=== PATIENT | female | born 1970 | race Caucasian/White ===

== ENCOUNTER 2023-01-19 21:41 | Emergency (ER) | payer SELFPAY ==
[~2023-01-19] VITALS: Ht 160 cm; Wt 66.2 kg
[2023-01-19 21:58] LABS: EOSINOPHILS # (AUTO) 0.1 X10'3 (0-0.9); MEAN PLATELET VOLUME 6.9 FL (7.4-10.4)
[2023-01-19 22:00] LABS: BASOPHILS % (AUTO) 0.2 % (0-1); EOSINOPHILS % (AUTO) 1.2 % (0-6); HEMATOCRIT 39.6 % (35.0-45.0); HEMOGLOBIN 13.8 g/dl (12.0-16.0); LYMPHOCYTES # (AUTO) 3.8 X10'3 (1.1-4.8); LYMPHOCYTES % (AUTO) 40.4 % (21-51); MEAN CORPUSCULAR HEMOGLOBIN 32.2 PG (27.0-31.0); MEAN CORPUSCULAR HGB CONC 34.8 g/dL (33.0-36.5); MEAN CORPUSCULAR VOLUME 92.4 FL (78-98); MONOCYTES # (AUTO) 0.9 X10'3 (0-0.9); MONOCYTES % (AUTO) 9.7 % (2-12); NEUTROPHILS # (AUTO) 4.5 X10'3 (1.8-7.7); NEUTROPHILS % (AUTO) 48.5 % (42-75); PLATELET COUNT 278 X10'3 (140-440); RED BLOOD COUNT 4.29 X10'6 (4.20-5.60); RED CELL DISTRIBUTION WIDTH 13.1 % (11.5-14.5); WHITE BLOOD COUNT 9.4 X10'3 (4.5-11.0)
[2023-01-19 22:10] LABS: ALANINE AMINOTRANSFERASE 26 U/L (12-78); ALBUMIN/GLOBULIN RATIO 1.1 (1.1-1.5); ALKALINE PHOSPHATASE 113 IU/L (46-116); ANION GAP 9 (8-16); ASPARTATE AMINO TRANSFERASE 23 U/L (10-37); BILIRUBIN,TOTAL 0.3 MG/DL (0.1-1.0); BLOOD UREA NITROGEN 12 MG/DL (7-18); BUN/CREATININE RATIO 13.6 (10.0-20.0); CALCIUM 9.6 MG/DL (8.5-10.1); CHLORIDE 105 MMOL/L (99-107); CREATININE 0.88 MG/DL (0.40-0.90); GLUCOSE 71 MG/DL (70-104); POTASSIUM 3.1 MMOL/L (3.5-5.1); SODIUM 143 MMOL/L (135-145); TOTAL CARBON DIOXIDE 29.3 MMOL/L (24-32); TOTAL PROTEIN 7.6 G/DL (6.4-8.2); eGFR 67 ML/MIN
--- NOTE | 2023-01-20 00:05 | NUR ---
ANA ROSA robert advised this conventional mortgage underwriter that this patient left and would be coming back in the am.
[2023-01-20 00:06] VITALS: BP 134/83; PULSE 81; RESP 12; TEMP 99.2; O2SAT 97
[2023-01-20] MEDS ORDERED: BECL10.6 PO (14:37)
[2023-01-20] MEDS ORDERED: CETI-90 PO (14:37)
[2023-01-20] MEDS ORDERED: SPIR25TA5 PO (14:37)
[2023-01-20] MEDS ORDERED: METO-395 PO (14:37)
[2023-01-20] MEDS ORDERED: MELA5TAB12 PO (14:37)
[2023-01-20] MEDS ORDERED: FURO20TA4 PO (14:37)
[2023-01-20] MEDS ORDERED: SACU1TAB PO (14:37)
[2023-01-20] MEDS ORDERED: IPRA4AER INH (14:37)
[2023-01-20] MEDS ORDERED: EMPA10TA PO (14:37)
== END 2023-01-20 00:10 | disposition left against medical advice (07) ==
LOC: ER 21:44
DX: Z00.8 Encounter for other general examination (principal); Z53.21 Procedure and treatment not carried out due to patient leaving prior to being seen by health care provider
CPT/HCPCS: 36415; 80053; 83880; 84484; 85025; 93005; 99281

== ENCOUNTER 2023-01-20 10:44 | Inpatient (IN) | payer OTHER ==
[~2023-01-20] VITALS: Ht 160 cm; Wt 57.0 kg
[2023-01-20] VITALS (18 sets, daily range): BP systolic 91–155; BP diastolic 43–100; PULSE 58–108; RESP 12–16; TEMP 97.5–98.2; O2SAT 94–99
[2023-01-20] MEDS ORDERED: HYDROcodone/acetaminophen 5mg/325mg tablet PO PRN (11:20)
[2023-01-20] MEDS ORDERED: mag hydrox/Alum hydrox/simeth 30ml oral suspension PO PRN (11:20)
[2023-01-20] MEDS ORDERED: magnesium hydroxide 30ml (MOM) UD suspension PO PRN (11:20)
[2023-01-20] MEDS ORDERED: acetaminophen 325mg tablet PO PRN ×2 (11:20)
[2023-01-20] MEDS ORDERED: diphenhydrAMINE 25mg capsule PO PRN (11:20)
[2023-01-20] MEDS: normal saline 1000ml 1,000 ML IV SCH ×2 (11:20→21:20)
[2023-01-20] MEDS: morphine 2 MG/ML inj. syringe IV PRN (12:39)
[2023-01-20 12:57] LABS: BASOPHILS % (AUTO) 0.1 % (0-1); EOSINOPHILS # (AUTO) 0.1 X10'3 (0-0.9); HEMATOCRIT 38.5 % (35.0-45.0); LYMPHOCYTES # (AUTO) 2.7 X10'3 (1.1-4.8); LYMPHOCYTES % (AUTO) 32.2 % (21-51); MEAN CORPUSCULAR HEMOGLOBIN 31.3 PG (27.0-31.0); MEAN CORPUSCULAR HGB CONC 33.8 g/dL (33.0-36.5); MEAN CORPUSCULAR VOLUME 92.5 FL (78-98); MEAN PLATELET VOLUME 7.3 FL (7.4-10.4); MONOCYTES # (AUTO) 0.7 X10'3 (0-0.9); MONOCYTES % (AUTO) 9.1 % (2-12); NEUTROPHILS # (AUTO) 4.8 X10'3 (1.8-7.7); NEUTROPHILS % (AUTO) 57.6 % (42-75); PLATELET COUNT 263 X10'3 (140-440); RED BLOOD COUNT 4.16 X10'6 (4.20-5.60); RED CELL DISTRIBUTION WIDTH 13.3 % (11.5-14.5); WHITE BLOOD COUNT 8.2 X10'3 (4.5-11.0)
[2023-01-20 13:13] LABS: ALANINE AMINOTRANSFERASE 22 U/L (12-78); ALBUMIN 3.7 G/DL (3.4-5.0); ALBUMIN/GLOBULIN RATIO 1.1 (1.1-1.5); ALKALINE PHOSPHATASE 112 IU/L (46-116); ANION GAP 10 (8-16); ASPARTATE AMINO TRANSFERASE 25 U/L (10-37); BILIRUBIN,TOTAL 0.3 MG/DL (0.1-1.0); BLOOD UREA NITROGEN 17 MG/DL (7-18); BUN/CREATININE RATIO 18.5 (10.0-20.0); CALCIUM 9.3 MG/DL (8.5-10.1); CHLORIDE 108 MMOL/L (99-107); CREATININE 0.92 MG/DL (0.40-0.90); GLUCOSE 108 MG/DL (70-104); POTASSIUM 3.5 MMOL/L (3.5-5.1); SODIUM 143 MMOL/L (135-145); TOTAL CARBON DIOXIDE 24.8 MMOL/L (24-32); TOTAL PROTEIN 7.1 G/DL (6.4-8.2); eGFR 64 ML/MIN
[2023-01-20] MEDS ORDERED: SPIR25TA5 PO (14:37)
[2023-01-20] MEDS ORDERED: BECL10.6 PO (14:37)
[2023-01-20] MEDS ORDERED: MELA5TAB12 PO (14:37)
[2023-01-20] MEDS ORDERED: EMPA10TA PO (14:37)
[2023-01-20] MEDS ORDERED: SACU1TAB PO (14:37)
[2023-01-20] MEDS ORDERED: IPRA4AER INH (14:37)
[2023-01-20] MEDS ORDERED: METO-395 PO (14:37)
[2023-01-20] MEDS ORDERED: FURO20TA4 PO (14:37)
[2023-01-20] MEDS ORDERED: CETI-90 PO (14:37)
[2023-01-20] MEDS ORDERED: BECLOMETHASONE DIPROPIONATE PO PRN (15:55)
[2023-01-20] MEDS ORDERED: ipratropium/albuterol 3ml nebule NEB PRN (15:55)
[2023-01-20] MEDS ORDERED: BUPIVAcaine/PF 2.5mg/ml (0.25%) 10ml vial ONE (16:43)
[2023-01-20] MEDS ORDERED: LIDOcaine 1% 30ml preserv. free vial ONE (16:43)
--- NOTE | 2023-01-20 16:53 | NUR ---
taken down for surgical removal of AICD at this time.
[2023-01-20] MEDS ORDERED: sevoflurane 250ml liquid IH ONE (17:05)
[2023-01-20] MEDS ORDERED: fentaNYL/PF 50MCG/1 ML 2ML syringe ONE ×2 (17:17→18:21)
[2023-01-20] MEDS ORDERED: midazolam 1 mg/ML 2ml injection ONE (17:36)
[2023-01-20] MEDS ORDERED: propofol inj 20 ML IV ONE (17:37)
[2023-01-20] MEDS ORDERED: LIDOcaine 1%/PF 5ML 10 MG/ML VIAL ONE ×2 (17:37)
[2023-01-20] MEDS ORDERED: 0.9 % SODIUM CHLORIDE 10 ML VIAL ONE (17:37)
[2023-01-20] MEDS ORDERED: phenylephrine 10mg/ml inj. -priapism dosing ONE (17:37)
[2023-01-20] MEDS ORDERED: dexamethasone sod phosphate 4mg/ml inj. ONE (17:37)
[2023-01-20] MEDS ORDERED: ondansetron/PF 4mg/2ml inj ONE (17:37)
[2023-01-20] MEDS ORDERED: vancomycin 1,000mg inj ONE (17:48)
--- NOTE | 2023-01-20 18:22 | NUR ---
Problems reprioritized. Patient report given, questions answered & plan of care reviewed with XI Oneal. All questions answered, XI Chicas.
--- NOTE | 2023-01-20 18:31 | NUR ---
Patient in room PCU 3012. I have received report from ROBERT/ FLOR LAYNE and had the opportunity to ask questions and assume patient care.
[2023-01-20] MEDS ORDERED: morphine 10mg/ml inj. ONE (18:53)
--- NOTE | 2023-01-20 18:56 | NUR ---
Received from OR via [facility] BED TO RR 6 , accompanied by Anesthesiologist DR DUNBAR and report given by Anesthesiolgist. PT PRESENTS WITH PIV 18G LEFT AC, DRESSING ON UPPER LEFT CHEST CDI, SPO2 99% 10L MASK, LR RUNNING AT 100MLS/HR, PT PAIN 0/10, VSS. Addendum: 01/20/23 at 1910 by Kelsey Gaitan RN, RN Amended: Links added.
[2023-01-20] MEDS ORDERED: labetalol 20mg/4ml (5mg/ml) syringe IV PRN (19:00)
[2023-01-20] MEDS ORDERED: morphine 2 MG/ML inj. syringe IV PRN (19:00)
[2023-01-20] MEDS ORDERED: morphine 4 MG/ML inj SYRINge IV PRN (19:00)
[2023-01-20] MEDS ORDERED: ondansetron/PF 4mg/2ml inj IV PRN (19:00)
[2023-01-20] MEDS ORDERED: acetaminophen 1,000mg/100ml IV 100 ML IV PRN (19:00)
[2023-01-20] MEDS ORDERED: proCHLORperazine 10 MG/2 ml inj IV PRN (19:00)
[2023-01-20] MEDS ORDERED: ringers solution, lacted 1,000 ML IV SCH (19:00)
[2023-01-20] MEDS ORDERED: hydrALAZINE 20mg/ml inj. IV PRN (19:00)
[2023-01-20] MEDS ORDERED: HYDROmorphone/PF 0.2 MG/ML SYRINGE IV PRN ×2 (19:00)
[2023-01-20] MEDS ORDERED: meperidine/PF 25mg/ml syringe ONE (19:04)
--- NOTE | 2023-01-20 19:35 | NUR ---
RECEIVED REPORT FROM ROBERTO LAYNE IN PACU. WILL CONTINUE TO MONITOR.
--- NOTE | 2023-01-20 19:46 | NUR ---
Report called to receiving nurse ADAN LAYNE. Transferred via [facility] BED TO ROOM [facility]. BED IN LOW LOCKED PSOTION WITH CHANTAL LIGHT IN REACH, PT HOOKED UP TO BEDSIDE MONITOR. Belongings WERE LEFT IN PT ROOM. Special Issues communicated to receiving nurse. Addendum: 01/20/23 at 1950 by Kelsey Gaitan RN, RN Amended: Links added.
[2023-01-20] MEDS: vancomycin/NS 1 GM ADD-VANTAGE 250 ML IV SCH (20:02)
[2023-01-20] MEDS: Melatonin 3mg tablet PO SCH (20:03)
[2023-01-20] MEDS: docusate sod 100mg capsule PO SCH (20:03)
[2023-01-20] MEDS: furosemide 20MG tablet PO SCH (20:03)
[2023-01-20] MEDS: metoprolol succinate 25mg (24-HOUR) SR. Tablet PO SCH (20:03)
[2023-01-20] MEDS: sacubitril/valsartan 24mg-26mg tablet PO SCH (20:10)
[2023-01-20] MEDS ORDERED: temazepam 15mg capsule PO PRN (21:00)
[2023-01-21] VITALS (11 sets, daily range): BP systolic 91–116; BP diastolic 47–71; PULSE 59–77; RESP 11–22; TEMP 97.4–98.7; O2SAT 95–98
[2023-01-21] MEDS: vancomycin/NS 1 GM ADD-VANTAGE 250 ML IV SCH ×2 (03:35→16:00)
[2023-01-21] MEDS: normal saline 1000ml 1,000 ML IV SCH ×2 (03:36→17:34)
--- NOTE | 2023-01-21 06:20 | NUR ---
Problems reprioritized. Patient report given, questions answered & plan of care reviewed with ROBERT/ FLOR LAYNE.
--- NOTE | 2023-01-21 06:43 | NUR ---
Patient in room PCU 3012. I have received report from Kimmy LAYNE and had the opportunity to ask questions and assume patient care. Aviva LAYNE, Dae LAYNE
[2023-01-21 06:48] LABS: BASOPHILS % (AUTO) 0.1 % (0-1); EOSINOPHILS % (AUTO) 0 % (0-6); HEMATOCRIT 36.3 % (35.0-45.0); HEMOGLOBIN 12.2 g/dl (12.0-16.0); LYMPHOCYTES % (AUTO) 8.3 % (21-51); MEAN CORPUSCULAR HGB CONC 33.6 g/dL (33.0-36.5); MEAN CORPUSCULAR VOLUME 92.2 FL (78-98); MEAN PLATELET VOLUME 7.3 FL (7.4-10.4); MONOCYTES # (AUTO) 0.3 X10'3 (0-0.9); MONOCYTES % (AUTO) 2.2 % (2-12); NEUTROPHILS # (AUTO) 11.1 X10'3 (1.8-7.7); NEUTROPHILS % (AUTO) 89.4 % (42-75); PLATELET COUNT 241 X10'3 (140-440); RED BLOOD COUNT 3.93 X10'6 (4.20-5.60); RED CELL DISTRIBUTION WIDTH 13.1 % (11.5-14.5); WHITE BLOOD COUNT 12.4 X10'3 (4.5-11.0)
[2023-01-21 06:58] LABS: APTT 27 SECONDS (22-32)
[2023-01-21 07:02] LABS: ALANINE AMINOTRANSFERASE 18 U/L (12-78); ALBUMIN 3.2 G/DL (3.4-5.0); ALBUMIN/GLOBULIN RATIO 1.1 (1.1-1.5); ALKALINE PHOSPHATASE 101 IU/L (46-116); ANION GAP 7 (8-16); ASPARTATE AMINO TRANSFERASE 24 U/L (10-37); BILIRUBIN,TOTAL 0.4 MG/DL (0.1-1.0); BLOOD UREA NITROGEN 15 MG/DL (7-18); BUN/CREATININE RATIO 17.6 (10.0-20.0); CALCIUM 8.5 MG/DL (8.5-10.1); CHLORIDE 108 MMOL/L (99-107); CREATININE 0.85 MG/DL (0.40-0.90); GLUCOSE 131 MG/DL (70-104); POTASSIUM 4.4 MMOL/L (3.5-5.1); SODIUM 139 MMOL/L (135-145); TOTAL CARBON DIOXIDE 24.4 MMOL/L (24-32); TOTAL PROTEIN 6.2 G/DL (6.4-8.2); eGFR 70 ML/MIN
[2023-01-21] MEDS: levoFLOXACIN-Levaquin 750MG/D5 150 ML IV SCH (08:18)
[2023-01-21] MEDS: sacubitril/valsartan 24mg-26mg tablet PO SCH ×2 (08:26→20:36)
[2023-01-21] MEDS: cetirizine 10mg tablet PO SCH (08:26)
[2023-01-21] MEDS: docusate sod 100mg capsule PO SCH ×2 (08:26→20:36)
[2023-01-21] MEDS: EMPAGLIFLOZIN 10 MG TABLET PO SCH (08:26)
[2023-01-21] MEDS: furosemide 20MG tablet PO SCH ×2 (08:26→20:36)
[2023-01-21] MEDS: spironolactone 25 MG tablet PO SCH (08:27)
[2023-01-21] MEDS: metoprolol succinate 25mg (24-HOUR) SR. Tablet PO SCH (08:27)
--- NOTE | 2023-01-21 10:15 | NUR ---
Page Sent To Evi Paul NP [id number] [facility] - Repeat Echo needed for evaluation of life vest, Thank you [phone] Aviva LAYNE
[2023-01-21] MEDS: morphine 2 MG/ML inj. syringe IV PRN ×2 (11:11→23:37)
[2023-01-21] MEDS: nicotine 21mg patch - 24 hr TD SCH (14:00)
--- NOTE | 2023-01-21 14:11 | NUR ---
Order entered for daily dressing change per Aviva HARRIS RN
[2023-01-21] MEDS: Dakins solution (1/4 strength) 473ml solution TP SCH (15:09)
[2023-01-21] MEDS ORDERED: morphine 2 MG/ML inj. syringe IV ONE (15:45)
[2023-01-21] MEDS: Melatonin 3mg tablet PO SCH (20:36)
[2023-01-21] MEDS: HYDROcodone/acetaminophen 10/325mg tab PO PRN (20:38)
[2023-01-21] MEDS: ondansetron/PF 4mg/2ml inj IV PRN (21:10)
[2023-01-22] VITALS (7 sets, daily range): BP systolic 99–118; BP diastolic 55–80; PULSE 62–80; RESP 15–20; TEMP 97.5–98.6; O2SAT 95–99
[2023-01-22] MEDS ORDERED: VANCOMYCIN LEVEL IV ONE (03:30)
[2023-01-22] MEDS: vancomycin/NS 1 GM ADD-VANTAGE 250 ML IV SCH ×2 (04:19→15:35)
[2023-01-22 05:11] LABS: ALANINE AMINOTRANSFERASE 20 U/L (12-78); ALBUMIN 3.6 G/DL (3.4-5.0); ALKALINE PHOSPHATASE 100 IU/L (46-116); ANION GAP 15 (8-16); ASPARTATE AMINO TRANSFERASE 19 U/L (10-37); BILIRUBIN,TOTAL 0.4 MG/DL (0.1-1.0); BLOOD UREA NITROGEN 15 MG/DL (7-18); BUN/CREATININE RATIO 17.4 (10.0-20.0); CALCIUM 9.1 MG/DL (8.5-10.1); CHLORIDE 105 MMOL/L (99-107); CREATININE 0.86 MG/DL (0.40-0.90); GLUCOSE 106 MG/DL (70-104); POTASSIUM 3.5 MMOL/L (3.5-5.1); SODIUM 145 MMOL/L (135-145); TOTAL CARBON DIOXIDE 25.5 MMOL/L (24-32); TOTAL PROTEIN 7.1 G/DL (6.4-8.2); VANCOMYCIN,TROUGH 19.8 UG/ML (6.0-14.0); eGFR 69 ML/MIN
--- NOTE | 2023-01-22 06:16 | NUR ---
Problems reprioritized. Patient report given, questions answered & plan of care reviewed with Marisa LAYNE.
--- NOTE | 2023-01-22 06:18 | NUR ---
Patient in room PCU 3012. I have received report from Gladys LAYNE and had the opportunity to ask questions and assume patient care.
[2023-01-22 06:31] LABS: BASOPHILS % (AUTO) 0.1 % (0-1); EOSINOPHILS % (AUTO) 0.4 % (0-6); HEMATOCRIT 39.8 % (35.0-45.0); HEMOGLOBIN 13.5 g/dl (12.0-16.0); LYMPHOCYTES # (AUTO) 3.6 X10'3 (1.1-4.8); LYMPHOCYTES % (AUTO) 36.8 % (21-51); MEAN CORPUSCULAR HEMOGLOBIN 31.4 PG (27.0-31.0); MEAN CORPUSCULAR VOLUME 92.5 FL (78-98); MEAN PLATELET VOLUME 7.3 FL (7.4-10.4); MONOCYTES # (AUTO) 0.9 X10'3 (0-0.9); MONOCYTES % (AUTO) 9.6 % (2-12); NEUTROPHILS # (AUTO) 5.2 X10'3 (1.8-7.7); NEUTROPHILS % (AUTO) 53.1 % (42-75); PLATELET COUNT 255 X10'3 (140-440); RED CELL DISTRIBUTION WIDTH 13.2 % (11.5-14.5); WHITE BLOOD COUNT 9.8 X10'3 (4.5-11.0)
[2023-01-22 06:41] LABS: APTT 24 SECONDS (22-32)
[2023-01-22] MEDS: HYDROcodone/acetaminophen 10/325mg tab PO PRN (07:32)
[2023-01-22] MEDS: docusate sod 100mg capsule PO SCH ×2 (07:32→21:08)
[2023-01-22] MEDS: sacubitril/valsartan 24mg-26mg tablet PO SCH ×2 (07:32→21:09)
[2023-01-22] MEDS: metoprolol succinate 25mg (24-HOUR) SR. Tablet PO SCH (07:32)
[2023-01-22] MEDS: cetirizine 10mg tablet PO SCH (07:33)
[2023-01-22] MEDS: spironolactone 25 MG tablet PO SCH (07:33)
[2023-01-22] MEDS: furosemide 20MG tablet PO SCH ×2 (07:33→21:09)
[2023-01-22] MEDS: EMPAGLIFLOZIN 10 MG TABLET PO SCH (07:33)
[2023-01-22] MEDS: nicotine 21mg patch - 24 hr TD SCH (07:35)
[2023-01-22] MEDS: normal saline 1000ml 1,000 ML IV SCH ×3 (07:36→23:20)
[2023-01-22] MEDS: Dakins solution (1/4 strength) 473ml solution TP SCH (07:37)
[2023-01-22] MEDS: levoFLOXACIN-Levaquin 750MG/D5 150 ML IV SCH (07:43)
[2023-01-22] MEDS: ondansetron/PF 4mg/2ml inj IV PRN (08:59)
--- NOTE | 2023-01-22 10:45 | NUR ---
Spoke with Dr Hills about patient's pain medication and nausea. Gave order for Percocet instead of [place].
[2023-01-22] MEDS ORDERED: oxyCODONE/APAP 5-325mg tablet PO PRN (11:00)
[2023-01-22] MEDS: morphine 2 MG/ML inj. syringe IV PRN (12:29)
--- NOTE | 2023-01-22 12:30 | NUR ---
Dressing changed on left chest per orders. Discomfort noted with packing otherwise denies pain.
--- NOTE | 2023-01-22 17:01 | NUR ---
AGREE WITH TOOL DESIGN ENGINEER AM ASSESSMENT
--- NOTE | 2023-01-22 18:22 | NUR ---
Problems reprioritized. Patient report given, questions answered & plan of care reviewed with Kevin ECHAVARRIA.
[2023-01-22] MEDS: oxyCODONE/APAP 10/325mg tablet PO PRN (21:09)
[2023-01-22] MEDS: Melatonin 3mg tablet PO SCH (21:09)
[2023-01-23] VITALS (9 sets, daily range): BP systolic 85–130; BP diastolic 46–101; PULSE 61–98; RESP 13–18; TEMP 96.8–97.6; O2SAT 96–99
[2023-01-23] MEDS: vancomycin/NS 1 GM ADD-VANTAGE 250 ML IV SCH ×2 (03:40→16:59)
[2023-01-23 06:07] LABS: BASOPHILS % (AUTO) 0.1 % (0-1); EOSINOPHILS # (AUTO) 0.1 X10'3 (0-0.9); HEMATOCRIT 41.6 % (35.0-45.0); HEMOGLOBIN 14.2 g/dl (12.0-16.0); LYMPHOCYTES # (AUTO) 3.5 X10'3 (1.1-4.8); LYMPHOCYTES % (AUTO) 39.2 % (21-51); MEAN CORPUSCULAR HEMOGLOBIN 31.4 PG (27.0-31.0); MEAN CORPUSCULAR HGB CONC 34.2 g/dL (33.0-36.5); MEAN CORPUSCULAR VOLUME 91.8 FL (78-98); MEAN PLATELET VOLUME 7.1 FL (7.4-10.4); MONOCYTES # (AUTO) 0.9 X10'3 (0-0.9); MONOCYTES % (AUTO) 10.2 % (2-12); NEUTROPHILS # (AUTO) 4.4 X10'3 (1.8-7.7); NEUTROPHILS % (AUTO) 49.5 % (42-75); PLATELET COUNT 267 X10'3 (140-440); RED BLOOD COUNT 4.53 X10'6 (4.20-5.60); RED CELL DISTRIBUTION WIDTH 13.1 % (11.5-14.5); WHITE BLOOD COUNT 8.8 X10'3 (4.5-11.0)
--- NOTE | 2023-01-23 06:28 | NUR ---
Patient in room PCU 3012. I have received report from Kevin ECHAVARRIA and had the opportunity to ask questions and assume patient care.
[2023-01-23 06:39] LABS: ALANINE AMINOTRANSFERASE 19 U/L (12-78); ALBUMIN 3.5 G/DL (3.4-5.0); ALKALINE PHOSPHATASE 105 IU/L (46-116); ANION GAP 8 (8-16); ASPARTATE AMINO TRANSFERASE 21 U/L (10-37); BILIRUBIN,TOTAL 0.3 MG/DL (0.1-1.0); BLOOD UREA NITROGEN 15 MG/DL (7-18); BUN/CREATININE RATIO 15.3 (10.0-20.0); CHLORIDE 104 MMOL/L (99-107); CREATININE 0.98 MG/DL (0.40-0.90); GLUCOSE 100 MG/DL (70-104); POTASSIUM 3.8 MMOL/L (3.5-5.1); SODIUM 142 MMOL/L (135-145); TOTAL CARBON DIOXIDE 29.6 MMOL/L (24-32); TOTAL PROTEIN 7.1 G/DL (6.4-8.2); eGFR 59 ML/MIN
[2023-01-23 06:49] LABS: APTT 27 SECONDS (22-32)
[2023-01-23] MEDS: levoFLOXACIN-Levaquin 750MG/D5 150 ML IV SCH (07:43)
[2023-01-23] MEDS: furosemide 20MG tablet PO SCH ×2 (08:21→20:43)
[2023-01-23] MEDS: sacubitril/valsartan 24mg-26mg tablet PO SCH ×2 (08:21→20:42)
[2023-01-23] MEDS: EMPAGLIFLOZIN 10 MG TABLET PO SCH (08:21)
[2023-01-23] MEDS: metoprolol succinate 25mg (24-HOUR) SR. Tablet PO SCH (08:21)
[2023-01-23] MEDS: nicotine 21mg patch - 24 hr TD SCH (08:21)
[2023-01-23] MEDS: spironolactone 25 MG tablet PO SCH (08:22)
[2023-01-23] MEDS: cetirizine 10mg tablet PO SCH (08:22)
[2023-01-23] MEDS: docusate sod 100mg capsule PO SCH ×2 (08:22→20:42)
[2023-01-23] MEDS: Dakins solution (1/4 strength) 473ml solution TP SCH (08:23)
[2023-01-23] MEDS: normal saline 1000ml 1,000 ML IV SCH ×2 (08:27→22:38)
[2023-01-23] MEDS: ondansetron/PF 4mg/2ml inj IV PRN (09:47)
[2023-01-23] MEDS: oxyCODONE/APAP 10/325mg tablet PO PRN ×2 (10:04→22:34)
--- NOTE | 2023-01-23 11:30 | NUR ---
AGREE WITH AM ASSESSMENT
--- NOTE | 2023-01-23 14:52 | NUR ---
PRESSURE ULCER EDUCATION: DEFINITION: A pressure ulcer is an area of skin that breaks down when you stay in one position too long. The constant pressure against the skin reduces the blood flow to that area and the affected tissue dies. CAUSES: "Being bedridden or in a wheelchair "Fragile skin "Having a chronic condition, such as diabetes or vascular disease "Inability to move certain parts of your body without assistance "Older age "Incontinence of urine or stool SYMPTOMS: "A reddened area that DOES NOT turn white when pressed on - this can be the beginning of a pressure ulcer "A blister, deep sore or a crater - these can be advanced pressure ulcers FIRST AID: "Relieve the pressure on this area "Keep the area clean and dry "Call your primary doctor if you see any of the above symptoms "DO NOT massage the area "DO NOT use a donut shaped or ring shaped pillow- these actually interfere with the blood flow and cause complications PREVENTION: "Check for pressure ulcers everyday "Change position at least every two hours to relieve pressure "Use items that help relieve pressure- pillows, sheepskin, foam padding, and powders. "Keep skin clean and dry "Eat healthy well balanced meals "Exercise daily IF YOU SEE ANY OF THESE SYMPTOMS WHILE IN THE HOSPITAL - TELL YOUR NURSE IMMEDIATELY. IF YOU SEE ANY OF THESE SYMPTOMS WHILE AT HOME OR HAVE ANY QUESTIONS OR CONCERNS ABOUT PRESSURE ULCERS - CALL YOUR PRIMARY DOCTOR IMMEDIATELY. Addendum: 01/23/23 at 1453 by Urszula Yanez RN Amended: Links added.
--- NOTE | 2023-01-23 18:23 | NUR ---
Problems reprioritized. Patient report given, questions answered & plan of care reviewed with Kevin CEHAVARRIA.
[2023-01-23] MEDS: linezolid 600mg tablet PO SCH (20:42)
[2023-01-23] MEDS: Melatonin 3mg tablet PO SCH (20:43)
[2023-01-24 02:00] VITALS: BP 91/52; PULSE 56; RESP 18; TEMP 96.9; O2SAT 96
[2023-01-24] MEDS ORDERED: VANCOMYCIN LEVEL IV ONE (03:30)
--- NOTE | 2023-01-24 06:15 | NUR ---
Patient in room PCU 3012. I have received report from Kevin ECHAVARRIA and had the opportunity to ask questions and assume patient care.
[2023-01-24 07:00] VITALS: BP 82/49; PULSE 74; RESP 15; TEMP 98.7; O2SAT 96
[2023-01-24 07:05] LABS: BASOPHILS % (AUTO) 0.2 % (0-1); EOSINOPHILS # (AUTO) 0.1 X10'3 (0-0.9); HEMOGLOBIN 14.3 g/dl (12.0-16.0); LYMPHOCYTES % (AUTO) 34.2 % (21-51); MEAN CORPUSCULAR HEMOGLOBIN 31.2 PG (27.0-31.0); MONOCYTES # (AUTO) 0.8 X10'3 (0-0.9)
[2023-01-24 07:06] LABS: ALANINE AMINOTRANSFERASE 18 U/L (12-78); ALBUMIN 3.4 G/DL (3.4-5.0); ALKALINE PHOSPHATASE 102 IU/L (46-116); ANION GAP 6 (8-16); ASPARTATE AMINO TRANSFERASE 19 U/L (10-37); BILIRUBIN,TOTAL 0.3 MG/DL (0.1-1.0); BLOOD UREA NITROGEN 16 MG/DL (7-18); CHLORIDE 105 MMOL/L (99-107); CREATININE 0.94 MG/DL (0.40-0.90); GLUCOSE 97 MG/DL (70-104); POTASSIUM 3.8 MMOL/L (3.5-5.1); SODIUM 140 MMOL/L (135-145); TOTAL CARBON DIOXIDE 29.2 MMOL/L (24-32); TOTAL PROTEIN 6.7 G/DL (6.4-8.2); eGFR 62 ML/MIN
[2023-01-24 07:08] LABS: EOSINOPHILS % (AUTO) 1.2 % (0-6); HEMATOCRIT 42.4 % (35.0-45.0); LYMPHOCYTES # (AUTO) 2.4 X10'3 (1.1-4.8); MEAN CORPUSCULAR HGB CONC 33.7 g/dL (33.0-36.5); MEAN CORPUSCULAR VOLUME 92.5 FL (78-98); MEAN PLATELET VOLUME 7.5 FL (7.4-10.4); MONOCYTES % (AUTO) 11.4 % (2-12); NEUTROPHILS # (AUTO) 3.8 X10'3 (1.8-7.7); PLATELET COUNT 283 X10'3 (140-440); RED BLOOD COUNT 4.58 X10'6 (4.20-5.60); RED CELL DISTRIBUTION WIDTH 12.9 % (11.5-14.5); WHITE BLOOD COUNT 7.1 X10'3 (4.5-11.0)
[2023-01-24] MEDS: furosemide 20MG tablet PO SCH (08:24)
[2023-01-24] MEDS: docusate sod 100mg capsule PO SCH (08:24)
[2023-01-24] MEDS: linezolid 600mg tablet PO SCH (08:24)
[2023-01-24] MEDS: sacubitril/valsartan 24mg-26mg tablet PO SCH (08:24)
[2023-01-24] MEDS: cetirizine 10mg tablet PO SCH (08:24)
[2023-01-24] MEDS: EMPAGLIFLOZIN 10 MG TABLET PO SCH (08:25)
[2023-01-24] MEDS: nicotine 21mg patch - 24 hr TD SCH (08:26)
[2023-01-24] MEDS: metoprolol succinate 25mg (24-HOUR) SR. Tablet PO SCH (08:27)
[2023-01-24 08:29] VITALS: BP_SYST 108; PULSE 90
[2023-01-24] MEDS: spironolactone 25 MG tablet PO SCH (08:29)
[2023-01-24] MEDS: Dakins solution (1/4 strength) 473ml solution TP SCH (08:30)
[2023-01-24] MEDS: normal saline 1000ml 1,000 ML IV SCH ×2 (08:31→15:20)
--- NOTE | 2023-01-24 10:57 | NUR ---
Zyvox Consult: Pt started on linezolid per EMR. Pt seen by RD at bedside for written-verbal low tyramine diet ed w/ RD contact information provided. RD encouraged pt to contact dietitian's office if further nutrition questions/concerns. Addendum: 01/24/23 at [address] Amended: Links added.
[2023-01-24] MEDS ORDERED: levoFLOXACIN 750MG TABLET PO SCH (11:00)
--- NOTE | 2023-01-24 13:14 | NUR ---
PAGER ID: [phone] MESSAGE: [phone] Todd Patient's prefered pharmacy is in place. Thank you Marisa [phone]
--- NOTE | 2023-01-24 13:52 | NUR ---
Spoke with Resident Santos about patient's medications being ordered
[2023-01-24] MEDS ORDERED: LINE600T14 PO (13:59)
[2023-01-24] MEDS ORDERED: OXYC1TAB17 PO (14:06)
--- NOTE | 2023-01-24 14:08 | NUR ---
PAGER ID: [phone] MESSAGE: [phone] Brooks Patient's pharmacy is [facility] I put it in the preferred. The resident only put in the zyvox Thank you Marisa ECHAVARRIA [phone]
[2023-01-24 14:52] VITALS: RESP 17
[2023-01-24] MEDS: oxyCODONE/APAP 10/325mg tablet PO PRN (14:52)
--- NOTE | 2023-01-24 16:10 | NUR ---
Patient discharged home with all belongings and discharge instructions. IV removed and tele monitor removed and returned to telephone appointment clerk. Escorted out via wheel chair and left in private vehicle.
== END 2023-01-24 16:10 | disposition home or self-care (01) | DRG 261 ==
LOC: PCU 3S 11:07
PROVIDERS: ADMIT Internal Medicine Interventional Cardiology; ATTEND Internal Medicine Interventional Cardiology
PROC: 02PA3MZ Removal of Cardiac Lead from Heart, Percutaneous Approach (ICD-10-PCS; 2023-01-20)
PROC: 0JB60ZZ Excision of Chest Subcutaneous Tissue and Fascia, Open Approach (ICD-10-PCS; 2023-01-20)
PROC: 0JPT0PZ Removal of Cardiac Rhythm Related Device from Trunk Subcutaneous Tissue and Fascia, Open Approach (ICD-10-PCS; principal; 2023-01-20 17:05)
DX: T82.7XXA Infection and inflammatory reaction due to other cardiac and vascular devices, implants and grafts, initial encounter (principal); I42.8 Other cardiomyopathies; I50.22 Chronic systolic (congestive) heart failure; F12.90 Cannabis use, unspecified, uncomplicated; I44.7 Left bundle-branch block, unspecified; R11.0 Nausea; F17.210 Nicotine dependence, cigarettes, uncomplicated; J44.9 Chronic obstructive pulmonary disease, unspecified; B95.7 Other staphylococcus as the cause of diseases classified elsewhere; T40.2X5A Adverse effect of other opioids, initial encounter; Y92.230 Patient room in hospital as the place of occurrence of the external cause; Y83.1 Surgical operation with implant of artificial internal device as the cause of abnormal reaction of the patient, or of later complication, without mention of misadventure at the time of the procedure; Y92.89 Other specified places as the place of occurrence of the external cause; Z88.0 Allergy status to penicillin; Z95.810 Presence of automatic (implantable) cardiac defibrillator; Z88.8 Allergy status to other drugs, medicaments and biological substances; Z71.51 Drug abuse counseling and surveillance of drug abuser; Z71.6 Tobacco abuse counseling
CPT/HCPCS: 93308; Z7506; Z7508; 36415; 71045; 71048; 76000; 80053; 80202; 83036; 83605; 85025; 85610; 85730; 87040; 87070; 87075; 87077; 87081; 87186; 93005; 94760; A4215; A4615; A4618; A6253; A6258; A6266; A6407; A6446; A6449; A7000; G0378; J0131; J0780; J1100; J1956; J2175; J2250; J2270; J2274; J2370; J2405; J2704; J3010; J3370; J3490; J7030; J7120